=== PATIENT | female | born 1970 | race Hispanic/Latino ===

== ENCOUNTER 2019-07-19 15:14 | Emergency (ER) | payer OTHER ==
[2019-07-19] MEDS ORDERED: GUAIFENESIN-DM 200/20 MG 10 ML ONE (16:29)
[2019-07-19] MEDS ORDERED: AZITHROMYCIN 250 MG TABLET PO ONE (16:30)
[2019-07-19] MEDS ORDERED: GUAIFENESIN SUGAR-FREE 100 MG/5 ML UDCUP ONE (16:34)
[2019-07-19] MEDS ORDERED: OSELTAMIVIR PHOSPHATE 75 MG CAP ONE (17:28)
== END 2019-07-19 17:52 | disposition home or self-care (01) ==
LOC: EDH 15:14
DX: J09.X2 Influenza due to identified novel influenza A virus with other respiratory manifestations (principal)
CPT/HCPCS: 36415; 87633; 87804; 87880

== ENCOUNTER 2021-03-27 18:37 | Emergency (ER) | payer OTHER ==
[~2021-03-27] VITALS: Ht 157.5 cm; Wt 79.0 kg
[2021-03-27] MEDS ORDERED: ALTEPLASE 100 MG VIAL IVP ONE (18:38)
[2021-03-27] MEDS ORDERED: ONDANSETRON 4MG INJ IVP ONE (19:30)
[2021-03-27 19:45] LABS: BASOPHILS % (AUTO) 0.5 % (0.0-5.0); EOSINOPHILS % (AUTO) 1.8 % (0.0-8.0); HEMATOCRIT 40.3 % (36-48); LYMPHOCYTES % (AUTO) 34.8 % (21.0-51.0); MEAN CORPUSCULAR HEMOGLOBIN 28.6 pg (27.0-33.0); MEAN CORPUSCULAR HGB CONC 32.8 g/dL (32.0-36.0); MEAN CORPUSCULAR VOLUME 87.4 fL (79-99); MONOCYTES % (AUTO) 8.8 % (3.0-13.0); NEUTROPHILS % (AUTO) 53.4 % (40.0-77.0); PLATELET COUNT (AUTO) 346 K/uL (130-400); RED BLOOD CELL COUNT(AUTO) 4.61 MIL/uL (4.00-5.50); RED CELL DISTRIBUTION WIDTH 14.6 % (11.0-15.5); WHITE BLOOD COUNT (AUTO) 9.7 K/uL (4.8-10.8)
[2021-03-27 19:50] LABS: POTASSIUM 3.8 mmol/L (3.5-5.1)
[2021-03-27 19:51] LABS: INR 0.96 (0.85-1.15); PROTHROMBIN TIME 10.5 SEC (9.6-11.6)
[2021-03-27 19:53] LABS: PARTIAL THROMBOPLASTIN TIME 25.1 SEC (26.3-35.5)
[2021-03-27 19:59] LABS: ALBUMIN 3.5 g/dL (3.5-5.0); BILIRUBIN,TOTAL 0.2 mg/dL (0.2-1.0); TOTAL PROTEIN, SERUM 7.6 g/dL (6.0-8.3)
[2021-03-27 20:07] LABS: B-TYPE NATRIURETIC PEPTIDE 10 pg/mL (0-100)
[2021-03-27] MEDS ORDERED: IOHEXOL 350 MG/ML 100ML INFUS..BTL IV ONE (20:59)
[2021-03-27] MEDS ORDERED: 0.9%NACL 1000ML 1,000 ML IV ONE (21:29)
[2021-03-27 21:34] LABS: CHOLESTEROL 258 mg/dL (<200); HDL CHOLESTEROL 70 mg/dL (35-85); HEMOGLOBIN A1C 5.6 % (4.0-6.0); LDL DIRECT 156 mg/dL (0-99); TRIGLYCERIDES 90 mg/dL (30-200)
[2021-03-27 21:58] LABS: APPEARANCE,URINE Clear (CLEAR); BILIRUBIN,URINE Negative (NEGATIVE); COLOR,URINE Yellow (YELLOW); GLUCOSE, URINE (UA) Negative (NEGATIVE); KETONES,URINE Trace mg/dL (NEGATIVE); LEUKOCYTE ESTERASE ,URINE Negative (NEGATIVE); NITRATE,URINE Negative (NEGATIVE); OCCULT BLOOD,URINE Large (NEGATIVE); PROTEIN,URINE POS 1+ mg/dL (NEGATIVE); UROBILINOGEN,URINE 0.2 mg/dL (0.2-1.0)
[2021-03-27 22:06] LABS: AMPHET/METH SCREEN,URINE NEGATIVE (NEGATIVE); BARBITURATE SCREEN, URINE NEGATIVE (NEGATIVE); BENZODIAZEPINES SCREEN,URINE NEGATIVE (NEGATIVE); CANNABINOID SCREEN,URINE NEGATIVE (NEGATIVE); COCAINE SCREEN,URINE NEGATIVE (NEGATIVE); OPIATE SCREEN,URINE NEGATIVE (NEGATIVE); PHENCYCLIDINE SCREEN,URINE NEGATIVE (NEGATIVE)
[2021-03-27 22:07] LABS: RBC,URINE >100 /HPF (0-1)
[2021-03-27 22:08] LABS: BACTERIA,URINE Few /HPF (None Seen); MUCUS,URINE Few LPF (None Seen); SQUAMOUS EPITHELIAL CELL,UR Moderate /HPF (0-2)
[2021-03-27 22:12] VITALS: BP 113/73
== END 2021-03-27 23:11 | disposition short-term general hospital (02) ==
LOC: EDH 18:37
DX: I63.9 Cerebral infarction, unspecified (principal); M06.9 Rheumatoid arthritis, unspecified; Z20.822 Contact with and (suspected) exposure to COVID-19
CPT/HCPCS: 36415; 37195; 70450; 71045; 80053; 80061; 80305; 81001; 82550; 82607; 83036; 83721; 83880; 84484; 85025; 85610; 85651; 85730; 87088; 87635; 93005; 99285; C9803; J2997; J7030; Q9967